=== PATIENT | female | born 1960 | race Caucasian/White ===

== ENCOUNTER 2021-07-11 21:29 | Emergency (ER) | payer MEDICAID ==
[~2021-07-11] VITALS: Ht 152.4 cm; Wt 47.2 kg
[2021-07-11 21:44] VITALS: BP 166/56
--- NOTE | 2021-07-11 21:52 | NUR ---
patient to lobby
--- NOTE | 2021-07-11 21:57 | NUR ---
patient to xr
[2021-07-11] MEDS ORDERED: IBUP-2218 PO (22:23)
--- NOTE | 2021-07-11 22:50 | NUR ---
PATIENT TO CHAIR A
[2021-07-11] MEDS ORDERED: NAPR-1717 PO (23:08)
[2021-07-11 23:12] VITALS: BP 166/56
--- NOTE | 2021-07-11 23:14 | NUR ---
Patient discharged with v/s stable. Written and verbal after care instructions given and explained. Patient alert, oriented and verbalized understanding of instructions. Ambulatory with steady gait. All questions addressed prior to discharge. ID band removed. Patient advised to follow up with PMD. Rx of NAROSYN given. Patient educated on indication of medication including possible reaction and side effects. Opportunity to ask questions provided and answered.
== END 2021-07-11 23:12 | disposition home or self-care (01) ==
LOC: MED 21:29
DX: S92.352A Displaced fracture of fifth metatarsal bone, left foot, initial encounter for closed fracture (principal); X58.XXXA Exposure to other specified factors, initial encounter; Y93.89 Activity, other specified; Y92.89 Other specified places as the place of occurrence of the external cause; Y99.8 Other external cause status
CPT/HCPCS: 73630; 99283

== ENCOUNTER 2022-11-05 10:12 | Emergency (ER) | payer MEDICAID ==
[~2022-11-05] VITALS: Ht 149.9 cm; Wt 44.5 kg
[~2022-11-05 10:12] MED LIST: NAPR-1717 PO
[2022-11-05 10:15] VITALS: BP 129/72
[2022-11-05] MEDS ORDERED: ACETAMINOPHEN EXTRA STRENGTH 500 MG TAB PO ONE (11:30)
[2022-11-05] MEDS ORDERED: ACET-10509 PO (11:38)
--- NOTE | 2022-11-05 11:48 | NUR ---
Patient discharged with v/s stable. Written and verbal after care instructions ABOUT NOSEBLEED AND GENERALIZED HEADACHE given and explained. Patient alert, oriented and verbalized understanding of instructions. Ambulatory with steady gait. All questions addressed prior to discharge. ID band removed. Patient advised to follow up with PMD. Rx of TYLENOL given. Patient educated on indication of medication including possible reaction and side effects. Opportunity to ask questions provided and answered.
== END 2022-11-05 11:48 | disposition home or self-care (01) ==
LOC: MED 10:12
DX: R51.9 Headache, unspecified (principal); R04.0 Epistaxis; Z79.899 Other long term (current) drug therapy
CPT/HCPCS: 99282